=== PATIENT | female | born 1955 | race Caucasian/White ===

== ENCOUNTER 2020-04-07 09:41 | Outpatient (CLI) | payer MEDICARE, SELFPAY ==
--- NOTE | ~2020-04-07 | MR_ITS ---
MR breast BI wo con 04/07/2020 11:47 CDT INDICATION: Evaluate for breast implant rupture. History of breast reconstruction. TECHNIQUE: MRI of the breasts perform using standard protocol without intravenous contrast including axial T2 FSE ASSET, axial vibrant, sagittal T2 fast spin echo, sagittal T2 STIR with silicone suppres vikki, sagittal T2 STIR water suppression COMPARISON: Mammogram dated 05/27/2019 FINDINGS: There are bilateral subglandular implants. There is metallic artifact along the inferior ma rgin of the left breast implant. There are normal radial folds in both implants. No evidence for intr acapsular or extracapsular implant rupture. There are normal-appearing bilateral axillary lymph nodes . No suspicious masses are identified. IMPRESSION: 1: No evidence for breast implant rupture. Reviewed, dictated and finalized at location A.
== END 2020-04-07 09:42 | disposition home or self-care (01) ==
PROVIDERS: PCP Family Medicine
DX: Z98.82 Breast implant status (principal); N63.11 Unspecified lump in the right breast, upper outer quadrant
CPT/HCPCS: 77047

== ENCOUNTER 2020-11-20 08:44 | Outpatient (CLI) | payer MEDICARE, SELFPAY ==
--- NOTE | ~2020-11-20 | DEXA_ITS ---
Bone Density Report Name: Jennifer Cannon Age: 65 Sex: Female Ethnicity: White Date of : 1955 Indication: postmenopausal; height loss; prior fracture; cancer; Referring Provider: KAIA, CHUCK Nunez Study: Bone densitometry was performed. Exam Date: November 20, 2020 Accession number: [id number] Bone Density: Region BMD T-score Z-score Classification AP Spine (L1-L4) 0.740 -2.8 -0.8 Osteoporosis Femoral Neck (Left) 0.617 -2.1 -0.4 Osteopenia Total Hip (Left) 0.773 -1.4 0.0 Osteopenia Total Hip Bilateral Avg 0.769 -1.5 -0.1 Osteopenia Femoral Neck (Right) 0.598 -2.3 -0.6 Osteopenia Total Hip (Right) 0.765 -1.5 -0.1 Osteopenia World Health Organization criteria for BMD impression classify patients as: Normal (T-score at or above -1.0), Osteopenia (T-score between -1.0 and -2.5), or Osteoporosis (T-score at or below -2.5). 10-year Fracture Risk: FRAX not reported because: Some T-score for Spine Total or Hip Total or Femoral Neck at or below -2.5 Clinical Information Provided by Patient: Has had a low trauma fracture Has used the following medications: Vitamin D, Calcium Has the following medical conditions: Cancer Patient maximum height was 63 Menopause Age: 45 No regular weight bearing exercise Drinks caffeinated beverages Onset of menses at age 10 Number of children 0 Impression: The patient has established osteoporosis, based on the Total Spine T-score and the existence of a prior fracture. The patient has risk factors, including: previous fracture. Discussion: HIGH RISK OF FRACTURE. BONE DENSITY IS UNDESIRABLY LOW AT ONE OR MORE SKELETAL SITES, CONSISTENT WITH POSTMENOPAUSAL OSTEOPOROSIS. This patient's lowest T-score, in a patient who has previously fractured, meets the World Health Organization's (WHO) criteria for severe osteoporosis. In untreated patients, the risk of osteoporotic fracture increases approximately two-fold for each 1.0 SD decrease in T-score. Low bone density is not the only risk factor for fracture; also consider factors such as patient's age, frailty or poor health, risk of falling, risk of injury, previous osteoporotic fracture, family history of osteoporosis, cigarette smoking, low body weight, etc. Not everyone with low bone mineral density has osteoporosis; osteomalacia and other metabolic bone disorders should also be considered. Patients who have osteoporosis should be evaluated for specific diseases and conditions (secondary causes) that may cause or contribute to bone loss. The [place] Association [employer] Endocrinologists (AACE) and National Osteoporosis Foundation (NOF) recommend pharmacologic intervention for all postmenopausal women whose T-score is in this range. The patient should follow a healthful lifestyle (good nutrition with adequate calcium and vitamin D, and appropriate weigh
== END 2020-11-20 08:45 | disposition home or self-care (01) ==
LOC: ANHIMG 08:45
PROVIDERS: PCP Family Medicine; Visit Provider Family Medicine
DX: M81.0 Age-related osteoporosis without current pathological fracture (principal); M85.852 Other specified disorders of bone density and structure, left thigh; M85.851 Other specified disorders of bone density and structure, right thigh
CPT/HCPCS: 77080

== ENCOUNTER 2020-11-22 15:06 | Outpatient (CLI) | payer MEDICARE, SELFPAY ==
--- NOTE | ~2020-11-22 | US_ITS ---
EXAMINATION:US venous doppler LE LT INDICATION:Left leg pain TECHNIQUE: Multiple grayscale, color flow and Doppler images of the left lower extremity deep venous systems were obtained and reviewed. COMPARISON:No prior studies for comparison. FINDINGS: The common femoral, superficial femoral and popliteal veins demonstrate normal respiratory variation, augmentation and compressibility. Color flow is also seen within the posterior tibial, pe roneal, greater saphenous and profunda veins. There is a Castillo's cyst in the popliteal fossa measurin g 2.3 cm. IMPRESSION: 1: No lower extremity deep venous thrombosis. Reviewed, dictated and finalized at location A. 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
== END 2020-11-22 15:07 | disposition home or self-care (01) ==
PROVIDERS: PCP Family Medicine; Visit Provider Family Medicine
DX: M79.605 Pain in left leg (principal)
CPT/HCPCS: 93971

== ENCOUNTER → 2021-08-23 14:54 | Outpatient (CLI) | payer MEDICARE, SELFPAY ==
--- NOTE | ~2021-08-23 | MM_ITS ---
EXAMINATION: MM scrn mor implant BI w desean HISTORY: Screening mammogram TECHNIQUE: Craniocaudal and mediolateral oblique 3-D tomosynthesis images with implant displacement a nd synthetic 2-D images were generated. Craniocaudal and mediolateral oblique views of the breasts wi thout implant displacement were obtained using full field digital mammography. CAD analysis was submi tted and interpreted. COMPARISON: Comparison to multiple prior studies sequentially, with oldest reviewed study dated 11/2017. BREAST PARENCHYMAL COMPOSITION: There are scattered areas of fibroglandular density. FINDINGS: There is no evidence of suspicious mass, calcification, or architectural distortion to sugg est malignancy in either breast. There has been no suspicious interval change. IMPRESSION: 1. No mammographic evidence of malignancy. 2. Recommend routine screening mammography in one year. BI-RADS Category 1: Negative Reviewed, dictated and finalized at location A. 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
== END ==
PROVIDERS: PCP Family Medicine; Visit Provider Family Medicine
DX: Z12.31 Encounter for screening mammogram for malignant neoplasm of breast (principal)
CPT/HCPCS: 77063; 77067

== ENCOUNTER 2023-02-24 13:08 | Emergency (ER) | payer MEDICARE, SELFPAY ==
--- NOTE | ~2023-02-24 | XR_ITS ---
XR hand RT min 3V 02/24/2023 14:18 Indication: Fourth metacarpal and fifth digit pain Procedure: 3 views right hand Comparison: No prior studies for comparison. 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 Osteopenia. No fracture or traumatic malalignment. No focal soft tissue abnormality. No foreign bodies. Impression: 1: No acute fracture. Reviewed, dictated and finalized at location [] Impression: 1: No acute fracture.
[2023-02-24 13:11] VITALS: BP 144/81; PULSE 80; RESP 16; TEMP 36.3; O2SAT 100
[2023-02-24 13:13] VITALS: TEMP 37
--- NOTE | 2023-02-24 14:02 | ED.GENADULT ---
HPI - General Adult General Chief complaint: Extremity Injury, Upper Stated complaint: right hand injury Time Seen by Provider: 02/24/23 13:13 Source: patient Mode of arrival: ambulatory Limitations: no limitations History of Present Illness HPI narrative: This is a 67-year-old female with PMH of anxiety who presents to the ED with chief complaints of right hand pain beginning 2 days ago. Patient states she was out of town in [place] over the weekend and was moving lots of chairs and playing with her kids on the playground. She is unsure of any specific trauma or injury to the right hand. Reports pain in the fourth MCP area. Denies any bruising or swelling. Denies any skin changes. Denies any further site of pain. Related Data Allergies Allergy/AdvReac Type Severity Reaction Status Date / Time linezolid Allergy Mild INSOMNIA,LOOSE Verified 02/24/23 13:17 STOOLS,FREQUENCY Penicillins Allergy Unknown RASH Unverified 02/24/23 13:17 Review of Systems Review of Systems: CONSTITUTIONAL: Denies fever, chills, or sweats. EYES: Denies visual changes, redness, or discharge. ENT: Denies rhinorrhea, congestion, sore throat, or otalgia. CARDIOVASCULAR: Denies chest pain, palpitations, or edema. RESPIRATORY: Denies cough or dyspnea. GASTROINTESTINAL: Denies abdominal pain, nausea, vomiting, or diarrhea. GENITOURINARY: Denies dysuria or hematuria. SKIN: Denies rash or itching. Denies redness or bruising. MUSCULOSKELETAL: See HPI NEUROLOGIC: Denies headache, numbness, dizziness, or weakness. PSYCHIATRIC: Denies anxiety or depression. Exam Narrative: GENERAL: Well-appearing, well-nourished, and in no acute distress. HEAD: Normocephalic, atraumatic. EYES: PERRLA and EOMI. ENT: Nares clear, no rhinorrhea or epistaxis. Mucous membranes moist. Oropharynx without tonsillar hypertrophy exudate or other lesions. NECK: Supple. No adenopathy or masses. CHEST: No respiratory distress. Clear to auscultation. No wheezes rales or rhonchi HEART: Regular rate and rhythm. No murmur heard. Normal peripheral pulses. ABDOMEN: Soft, nontender, nondistended, normal active bowel sounds. MSK: Right hand: No swelling. No bruising. No skin changes. She has mild tenderness palpation of the fourth MCP dorsally. Neurovascular intact distally. Full range of motion throughout the hand. Left hand: Benign. Normal range of motion. No edema. SKIN: Warm, dry, no rash. NEURO: Alert and oriented x3. No focal deficits. PSYCH: Normal mood and affect. Course Vital Signs Vital signs: Vital Signs Temperature 97.4 F L 02/24/23 13:11 Pulse Rate 80 02/24/23 13:11 Respiratory Rate 16 02/24/23 13:11 Blood Pressure 144/81 H 02/24/23 13:11 Pulse Oximetry 100 02/24/23 13:11 Oxygen Delivery Room Air 02/24/23 13:11 Temperature 98.6 F 02/24/23 13:13 Pulse Rate 80 02/24/23 13:11 Respiratory Rate 16 02/24/23 13:11 Blood Pressure 144/81 H 02/24/23 13:11 Pulse Oximetry 100 02/24/23 13:11 Oxygen Delivery Room Air 02/24/23 13:11 Medical Decision Making MDM Narrative Medical decision making narrative: This is a 67-year-old female who presents to the ED with chief complaint of right hand pain x2 days. No injuries. Vitals are stable. Exam is completely benign. X-rays are negative. Symptoms are consistent with strain versus arthritis. She was given prescription for meloxicam. Stable for discharge. Return precautions given. Supportive measures at home discussed including using a wrist brace for comfort. She is understanding and agreeable with plan for discharge and follow-up with her PCP. Vital Signs Vital Signs: Vital Signs Temperature 97.4 F L 02/24/23 13:11 Pulse Rate 80 02/24/23 13:11 Respiratory Rate 16 02/24/23 13:11 Blood Pressure 144/81 H 02/24/23 13:11 Pulse Oximetry 100 02/24/23 13:11 Oxygen Delivery Room Air 02/24/23 13:11 Temperature 98.6 F 02/24/23 13:13 Pulse Rate 8
== END 2023-02-24 14:37 | disposition home or self-care (01) ==
PROVIDERS: Emergency Provider Physician Assistant; PCP Family Medicine
DX: M25.541 Pain in joints of right hand (principal); M19.041 Primary osteoarthritis, right hand; M11.231 Other chondrocalcinosis, right wrist; M85.841 Other specified disorders of bone density and structure, right hand
CPT/HCPCS: 73130; 99283

== ENCOUNTER 2025-03-14 11:15 | Outpatient (CLI) | payer MEDICARE, SELFPAY ==
--- NOTE | ~2025-03-14 | XR_ITS ---
Lumbosacral Spine: AP and lateral views Clinical History: Pain Findings: The normal lordotic curve is maintained. No fracture or subluxation. There is advanced dege nerative disc narrowing at L2-L3. There is moderate degenerative single L5-S1. There is moderate face t arthropathy at L4-L5 and L5-S1. There is mild facet arthropathy the upper lumbar spine. The sacroil iac joints are normally outlined. Impression: Moderate degenerative spondylosis overall, as detailed above. Reviewed, dictated and finalized at location M. Impression: Moderate degenerative spondylosis overall, as detailed above.
--- NOTE | ~2025-03-14 | XR_ITS ---
AP view of the pelvis and AP and lateral views of the bilateral hips Clinical history: Pain Findings: No acute fracture or dislocation is seen. Osseous alignment is anatomic. Bilateral hip and SI joint spaces are preserved. Soft tissues are unremarkable. Impression: No significant abnormality is seen. Reviewed, dictated and finalized at location . Impression: No significant abnormality is seen.
--- OUTSIDE RECORDS SUMMARY | 2025-03-14 11:48 | XMS_ITS | Referral Summary ---
Author Organization [facility] Care Team Providers Care Retirement Officer Name Role Phone Joaquim Pritchett MD Primary Care Provider [phone] Encounters Date Type Department Care Team Description 02/17/2025 11:00 AM CDT Office Visit [facility] [address] [place] [id number] Rosy Olson MD H/O cosmetic plastic surgery (Primary Dx); Follow-up exam from Last 3 Months Allergies Active Allergy Reactions Criticality Noted Date Comments Etodolac Other (See comments) Medium 02/17/2025 Linezolid Diarrhea,Nausea & Vomiting High 8 Penicillins Rash Medium 03/04/2013 Medications alendronate (FOSAMAX) 70 mg tablet Take 1 tablet (70 mg total) by mouth once a week Active amLODIPine (NORVASC) 5 mg tablet amlodipine 5 mg tablet 09/15/18 70 Active aspirin 81 mg enteric coated tablet Take 1 tablet (81 mg total) by mouth daily Active atorvastatin (LIPITOR) 20 mg tablet Take 1 tablet (20 mg total) by mouth every evening Active cetirizine (ZyrTEC) 10 mg tablet Take 1 tablet (10 mg total) by mouth daily 01/14/20 24 Active escitalopram (LEXAPRO) 10 mg tablet 1/2 tab po qday with food x 1 week then increase to 1 po qday with food Active etodolac (LODINE) 400 mg tablet Take 1 tablet twice a day by oral route. Active fexofenadine-p seudoephedrine (Shamika-D 12 Hour) 60-120 mg per 12 hr tablet Active Veozah tablet tablet Take 1 tablet (45 mg total) by mouth daily 02/11/20 25 Active ibandronate (BONIVA) 150 mg tablet TAKE 1 TABLET BY MOUTH ONCE MONTHLY Active clorazepate (TRANXENE) 7.5 mg tablet 2 07/17/20 18 025 Discontinued Active Problems Problem Noted Date Diagnosed Date Surgical follow-up care 11/26/2016 Mass of breast 02/24/2013 Social History Tobacco Use Types Packs/Day Years Used Date Smoking Tobacco: Former Comments Unknown Sex and Gender Information Value Date Recorded Sex Assigned at Not on file Legal Sex Female 1:14 PM 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 Gender Identity Not on file Sexual Orientation Not on file Last Filed Vital Signs Vital Sign Reading Time Taken Comments Blood Pressure - - Pulse - - Temperature 36.7 C (98.1 F) 03/09/2020 3:46 PM CDT Respiratory Rate - - Oxygen Saturation - - Inhaled Oxygen Concentration - - Weight 60.8 kg (133 lb 15.9 oz) 11/26/2016 2:12 PM CDT Height 157.5 cm (5' 2) 11/26/2016 2:12 PM CDT Body Mass Index 24.51 11/26/2016 2:12 PM CDT Plan of Treatment Not on file Procedures Procedure Name Priority Date/Time Associated Diagnosis Comments DIAGNOSTIC MAMMOGRAM BILATERAL W ADOLFO W IMPLANTS Schedule Routine, Read Routine (OP Routine) 08/06/2024 10:47 AM 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 Breast pain Personal history of breast cancer DEXA AXIAL SKELETON BONE DENSITY 1 OR MORE SITES Schedule Routine, Read Routine (OP Routine) 03/10/2023 1:25 PM CDT Screening for osteoporosis from Last 3 Months or Most Recently Relevant to Health Maintenance Results * Diagnostic Mammogram Bilateral W Adolfo W Implants (08/06/2024 10:47 AM 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) Anatomical Region Laterality Modality Breast Bilateral Mammography 08/06/2024 11:1 7 AM 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 Impressions 08/06/2024 11:17 AM 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 1. No suspicious finding on either mammogram or ultrasound at the patient's area of left breast pain (3 o'clock position). Clinical follow-up is recommended. Any further evaluation should be based on clinical grounds. 2. No mammographic evidence of malignancy in either breast. Bilateral silicone breast implants appear mammographically stable. Monthly breast self physical examination and screening mammography in one year are recommended. The patient was notified of these findings and recommendations at the time of the examination. OVERALL FINAL ASSESSMENT: BI-RADS Category 2: Benign. Electronically signed by: Fernando De Anda M.D. Narrative 08/06/2024 11:17 AM 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 EXAMINATION: BILATERAL DIGITAL DIAGNOSTIC MAMMOGRAM INCLUDING CAD AND BILATERAL DIGITAL BREAST TOMOSYNTHESIS; LEFT BREAST SONOGRAM HISTORY: 69-year-old female presents for evaluation of focal pain in the left breast and for annual right screening mammogram. History of left breast cancer status post breast conserving therapy in 1999. Bilateral silicone breast implants. COMPARISON: Mammograms dated 03/10/2023 and 08/23/2021. Outside breast MRI dated 04/07 2020. TECHNIQUE: Full field digital mammographic views of BOTH breast were performed, including computer aided detection (CAD) and BILATERAL digital breast tomosynthesis (DBT). Directed ultrasound evaluation of the LEFT breast was performed. BREAST PARENCHYMAL COMPOSITION: The breasts are heterogeneously dense, which may obscure small masses. MAMMOGRAM FINDINGS: Bilateral subglandular silicone breast implants are unchanged in appearance. The presence of implants limits the sensitivity of mammography. There are benign calcifications in both breasts. A radiopaque marker has been placed on the central outer left breast, denoting the area of pain. No suspicious finding is seen underlying the marker. There has been no suspicious interval change in either breast on mammogram. SONOGRAM FINDINGS: Targeted ultrasound of the left breast area of pain at 3:00 (1-8 cm nipple) demonstrates only normal-appearing breast tissue with no solid or cystic mass or other suspicious finding. The indwelling left breast implant appears grossly unremarkable on limited evaluation. us Joaquim Pritchett MD IMG MAMMO PROCEDURES Final Result * Dexa Axial Skeleton Bone Density 1 or 2 Site (03/10/2023 1:25 PM CDT) Anatomical Region Laterality Modality Body N/A Other 03/10/2023 9:04 PM CDT Narrative 03/10/2023 9:05 PM CDT EXAM DESCRIPTION: DEXA AXIAL SKELETON BONE DENSITY 1 OR MORE SITES REASON FOR STUDY: 67 y/o year old F with given history of: Bone density follow up Screening. 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 IMPRESSION: Osteoporosis. REFERENCE: Bone mineral density: Normal (T-score above or = -1.0) Low bone mass (T-score between -1.0 and -2.5) replaces the previously used term osteopenia Osteoporosis (T-score = or below -2.5) Medical evaluation for secondary causes of low bone mineral density may be appropriate. FRAX is a World Health Organization validated fracture risk assessment tool that calculates a person's 10 year probability of a major osteoporosis related fracture and hip fracture. According to the National Osteoporosis Foundation guidelines, postmenopausal women and men age 50 or older with low bone mass and a 10 year probability of a major osteoporosis related fracture = or greater than 20% or a 10 year probability of a hip fracture = or greater than 3% should be considered for treatment. For further information, including treatment recommendations, please refer to the 2019 ISCD Official Positions (http://www.iscd.org) and the NOF's Clinician's Guide to Prevention and Treatment of Osteoporosis (http://www.nof.org/professionals/clinical-guidelines) THIS IS AN ELECTRONICALLY VERIFIED FINAL REPORT 03/10/2023 9:05 PM - Electronically signed by Unruly Matias M.D. MF: [email or web address] Report ID: [id number] Reading Location: [id number] Procedure Note Unruly Matias MD - 03/10/2023 EXAM DESCRIPTION: DEXA AXIAL SKELETON BONE DENSITY 1 OR MORE SITES REASON FOR STUDY: 67 y/o year old F with given history of: Bonedensity follow up Screening. 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 IMPRESSION: Osteoporosis. REFERENCE: Bone mineral density: Normal (T-score above or = -1.0) Low bone mass (T-score between -1.0 and -2.5) replaces thepreviously used term osteopenia Osteoporosis (T-score = or below -2.5) Medical evaluation for secondary causes of low bone mineral density may be appropriate. FRAX is a World Health Organization validated fracture risk assessmenttool that calculates a person's 10 year probability of a major osteoporosisrelated fracture and hip fracture. According to the National OsteoporosisFoundation guidelines, postmenopausal women and men age 50 or older with low bonemass and a 10 year probability of a major osteoporosis related fracture = or greater than 20% or a 10 year probability of a hip fracture = or greaterthan 3% should be considered for treatment. For further information, including treatment recommendations, please referto the 2019 ISCD Official Positions (http://www.iscd.org) and the NOF's Clinician's Guide to Prevention and Treatment of Osteoporosis (http://www.nof.org/professionals/clinical-guidelines) THIS IS AN ELECTRONICALLY VERIFIED FINAL REPORT 03/10/2023 9:05 PM - Electronically signed by Unruly Matias M.D. MF: [email or web address] Report ID: [id number] Reading Location: [id number] Indu Whitaker MD IMG DXA PROCEDURES Final Result from Last 3 Months or Most Recently Relevant to Health Maintenance Insurance [id number] [place] [address] MEDICARE [facility] MEDICARE Care Teams Retirement Officer Relationship Specialty Start Date End Date Joaquim Pritchett MD [address] [place] [id number] PCP - General Family Medicine 05/05/24
--- OUTSIDE RECORDS SUMMARY | 2025-03-14 11:48 | XMS_ITS | Data Portability ---
Author Organization [facility], Main Office Address [address] [place] [address] Assessment No assessment recorded. Plan of Treatment Reminders Order Date Submit Date Provider Last Modified By Organization Details Last Modified Time Details Appointments None recorded. Lab urinalysis, dipstick 2022 023 [facility] [address], [place], [address], 3 11:29:41 Referral urogynecolo gist referral 2022 023 [email or web address] Rosendo White MD, [address] [facility] [address], [place], [address], 4 10:36:04 Procedures None recorded. Surgeries None recorded. Imaging None recorded. Medication Orders Sudafed 30 mg tablet 2023 024 [facility] #[id number], [address], [place], [address], 4 16:54:15 amoxicillin 875 mg-potassiu m clavulanate 125 mg tablet 2023 024 [facility] #[id number], [address], [place], [address], 4 16:54:13 prednisone 20 mg tablet 2023 024 [facility]/Pharmacy #[id number], [address], [place], [address], 4 16:54:12 Macrobid 100 mg capsule 2022 023 [facility]acy #[id number], [address], [place], [address], 3 11:21:51 Patient TargetsNo targets recorded. Patient InstructionsNo instructions recorded. Reason for Referral Urogynecologist Referral for Urinary incontinence Referring Physician: Devyn House, Family Medicine, Encounter Date: 08/15/2023 Results Created Date Observation Date Name Description Value Unit Range Abnormal Flag Note LastModifiedBy Organization Detail LastModifiedTime 08/15/2008/15/2023 urina lysis , dipst ick Leukocytes (reference range: negative nick/ l) Large Not Available [address], [place], [address], 08/15/2023 10:58:09 08/15/20 23 08/15/2023 urina lysis , dipst ick Nitrite (reference rage: negative mg/dl) negati ve Not Available [address], [place], [address], 08/15/2023 10:58:09 08/15/20 23 08/15/2023 urina lysis , dipst ick Urobilinogen (reference range: 0.2-1 mg/dl) 0.2 Not Available [address], [place], [address], 08/15/2023 10:58:09 08/15/20 23 08/15/2023 urina lysis , dipst ick Protein (reference range: negative mg/dl) Modera te Not Available [address], [place], [address], 08/15/2023 10:58:09 12/01/08/15/2023 urina lysis , dipst ick pH (reference range: 5-7) 5.5 Not Available [address], [place], [address], 08/15/2023 10:58:09 08/15/20 23 08/15/2023 urina lysis , dipst ick Blood (reference range: negative Akin/ l) Modera te Not Available [address], [place], [address], 08/15/2023 10:58:09 08/15/2008/15/2023 urina lysis , dipst ick Specific Treynor (reference range: 1.005-1.030) 1.025 Not Available [address], [place], [address], 08/15/2023 10:58:09 08/15/20 23 08/15/2023 urina lysis , dipst ick Ketone (reference range: negative mg/dl) Negati ve Not Available [address], [place], [address], 08/15/2023 10:58:09 08/15/20 23 08/15/2023 urina lysis , dipst ick Bilirubin (reference range: negative mg/dl) Negati ve Not Available [address], [place], [address], 08/15/2023 10:58:09 08/15/20 23 08/15/2023 urina lysis , dipst ick Glucose (reference range: negative mg/dl) Negati ve Not Available [address], [place], [address], 08/15/2023 10:58:09 08/15/20 23 08/15/2023 urina lysis , dipst ick Appearance Clear Not Available [facility] [address], [place], [address], 08/15/2023 10:58:09 08/15/20 23 08/15/2023 urina lysis , dipst ick Color Yellow Not Available [facility] [address], [place], [address], 08/15/2023 10:58:09 09/02/20 23 09/02/2023 URINA LYSIS COMPL ETE/I RIS W/RFX color YELLOW Not Available [facility] (Lab) [address] [place], [address], 09/02/2023 21:03:30 09/02/20 23 09/02/2023 URINA LYSIS COMPL ETE/I RIS W/RFX appear TURBID abnormal Not Available [facility] (Lab) [address] [place], [address], 09/02/2023 21:03:30 09/02/20 23 09/02/2023 URINA LYSIS COMPL ETE/I RIS W/RFX specific gravity 1.024 1.001- 1.030 Not Available [facility] (Lab) [address] [place], [address], 09/02/2023 21:03:30 09/02/20 23 09/02/2023 URINA LYSIS COMPL ETE/I RIS W/RFX pH 5.5 pH_un its 5.0-9. 0 Not Available [facility] (Lab) [address] [place], [address], 09/02/2023 21:03:30 09/02/20 23 09/02/2023 URINA LYSIS COMPL ETE/I RIS W/RFX leukocytes NEGATI VE nick/u L negati ve- Not Available [facility] (Lab) [address] [place], [address], 09/02/2023 21:03:30 09/02/20 23 09/02/2023 URINA LYSIS COMPL ETE/I RIS W/RFX nitrite NEGATI VE negati ve- Not Available [facility] (Lab) [address] [place], [address], 09/02/2023 21:03:30 09/02/20 23 09/02/2023 URINA LYSIS COMPL ETE/I RIS W/RFX protein 20 mg/dL negati ve- abnormal Not Available [facility] [address] [facility] [place], [address], 09/02/2023 21:03:30 09/02/20 23 09/02/2023 URINA LYSIS COMPL ETE/I RIS W/RFX glucose NORMAL mg/dL normal - Not Available [facility] (Lab) [address] [place], [address], 09/02/2023 21:03:30 09/02/20 23 09/02/2023 URINA LYSIS COMPL ETE/I RIS W/RFX ketones NEGATI VE mg/dL negati ve- Not Available [facility] (Lab) [address] [place], [address], 09/02/2023 21:03:30 09/02/20 23 09/02/2023 URINA LYSIS COMPL ETE/I RIS W/RFX urobilinogen NORMAL mg/dL normal - Not Available [facility] (Lab) [address] [place], [address], 09/02/2023 21:03:30 09/02/20 23 09/02/2023 URINA LYSIS COMPL ETE/I RIS W/RFX bilirubin NEGATI VE mg/dL negati ve- Not Available [facility] (Lab) [address] [place], [address], 09/02/2023 21:03:30 09/02/20 23 09/02/2023 URINA LYSIS COMPL ETE/I RIS W/RFX blood NEGATI VE mg/dL negati ve- Not Available [facility] (Lab) [address] [place], [address], 09/02/2023 21:03:30 09/02/20 23 09/02/2023 URINA LYSIS COMPL ETE/I RIS W/RFX white blood cells 0-8 /i??h pfi?? 0-8 Not Available [facility] (Lab) [address] [place], [address], 09/02/2023 21:03:30 09/02/20 23 09/02/2023 URINA LYSIS COMPL ETE/I RIS W/RFX red blood cells 5-10 /i??h pfi?? 0-4 abnormal Not Available [facility] ([facility] [address] [facility] [place], [address], 09/02/2023 21:03:30 09/02/20 23 09/02/2023 URINA LYSIS COMPL ETE/I RIS W/RFX bacteria NONE Not Available [facility] (Lab) [address] [place], [address], 09/02/2023 21:03:30 09/02/20 23 09/02/2023 URINA LYSIS COMPL ETE/I RIS W/RFX mucous FEW /i??l pfi?? abnormal Not Available [facility] (Lab) [address] [place], [address], 09/02/2023 21:03:30 09/02/20 23 09/02/2023 URINA LYSIS COMPL ETE/I RIS W/RFX squamous epithelial PACKED FIELD /i??l pfi?? abnormal Not Available [facility] (Lab) [address] [place], [address], 09/02/2023 21:03:30 09/02/20 23 09/02/2023 URINA LYSIS COMPL ETE/I RIS W/RFX hyaline cast MODERA TE /i??l pfi?? none seen- abnormal Not Available [facility] (Lab) [address] [place], [address], 09/02/2023 21:03:30 Result Notes None recorded. Problems Name Problem SNOMED Code Status Onset Date Resolution Date Notes Provider Name and Address Organization Details Recorded Time Neoplasm of breast 359480248 Active 1999 Not Available [facility] 3 00:54:49 Indigestion 694460566 Active Not Available [facility] 3 00:54:49 Closed fracture of distal end of radius 39658137 Active Not Available [facility] 3 00:54:49 Plantar fasciitis 459040824 Active Not Available [facility] 3 00:54:50 Abdominal pain 37026012 Active Not Available [facility] 3 00:54:50 Ankle pain 913222420 Active 2020 Not Available [facility] 3 00:54:50 Chest pain 24741242 Active Not Available [facility] 3 00:54:50 Bronchitis 76570359 Active Not Available [facility] 3 00:54:50 Foreign body in skin of foot 887141789 Active 2021 Not Available [facility] 3 00:54:50 Foot pain 64006498 Active Not Available [facility] 3 00:54:50 Anxiety 30346254 Active Not Available [facility] 3 00:54:50 Cough 27241924 Active Not Available [facility] 3 00:54:50 Peroneal tendinitis 62843043 Active 2021 Not Available [facility] 3 00:54:50 Osteoporosis 78439449 Active 2017 Not Available [facility] 3 00:54:50 Fracture of forearm 62936084 Active Not Available [facility] 3 00:54:50 Rhinitis 96921329 Active Not Available [facility] 3 00:54:50 Effects of high altitude 84172615 Active 2022 Indu Whitaker MD [address], [address], [place], [address] , [facility] 3 11:55:55 Eczema 94577500 Active 2022 Indu Whitaker MD [address], [address], [place], [address] , [facility] 3 11:59:13 Urinary incontinence 139059041 Active 2022 Indu Whitaker MD [address], [address], [place], [address] , [facility] 3 12:01:52 Reduced libido 2053480 Active 2022 DUSTIN De La VegaP-C [address], [address], [place], [address] , [facility] 3 10:50:53 Night sweats 60920821 Active 2022 ZAC De La Vega-C [address], [address], [place], [address] , [facility] 3 10:52:34 Cellulitis 340736004 Active 2022 Indu Whitaker MD [address], [address], [place], [address] , [facility] 3 18:08:08 Acute urinary tract infection 433095430 Active 2022 THIAGO De La Vega [address], [address], [place], [address] , [facility] 3 10:58:00 Urinary symptoms 984305855 Active 2023 Fransisca Saucedo RN null, [place] [facility] 4 12:22:41 Congestion of nasal sinus 55252947 Active 2023 DUSTIN De La VegaP-C [address], [address], [place], [address] , [facility] [employer] [facility] [address] 4 14:31:20 Acute sinusitis 49711978 Active 2023 Devyn House ZAC-C [address], [place], [address] , [employer] [facility] [employer] 4 16:42:20 Insomnia 145924945 Active 2023 Devyn House ZAC-C [address], [facility] [address], [place], [address] , [employer] [address] 4 11:29:35 Problem Notes None recorded. Procedures Surgical History Date Name Laterality Status Provider Name and Address Organization Details Recorded Time 05/10/20 17 Breast Surgery completed Not Available [facility] 11/13 00:47:34 09/02/20 16 Breast Surgery completed Not Available [facility] 11/13 00:47:34 08/15/20 16 Breast Biopsy completed Not Available [facility] 2022 00:47:34 09/15/19 16 Breast Surgery completed Not Available [facility] 11/13 00:47:34 05/31/20 15 Date of Last Colonoscopy completed Not Available [facility] 11/13/2022 00:47:31 05/31/20 15 colonoscopy completed Not Available [facility] 11/14/19 23 00:47:34 09/15/19 00 other completed Not Available [facility] 3 00:47:34 [employer] Surgery completed Not Available [facility] 11/13/2022 00:47:34 other completed Not Available [facility] 09/2022 00:47:34 Shoulder completed Not Available [facility] 00:47:34 Imaging Results None recorded. Procedure Notes None recorded. Medical Equipment None Reported. Allergies Allergen ID Allergen Name Allergen Category Reaction Reaction Severity Criticality Documentation Date Start Date Code Code System Note Provider Name and Address Organization Details Recorded Time 1213 Product containin g penicilli n (product) medicatio n rash Not available Not available 11/13/2022 95307 8001 SNOMED Not Available [facility] 3 01:01:20 1214 linezolid medicatio n diarrhea severe Not available 11/13/2022 04180 6 RxNorm Not Available [facility] 3 01:01:20 1215 etodolac medicatio n other moderate Not available 11/13/2022 96890 RxNorm Not Available [facility] 3 01:01:20 Medications Name Sig Start Date Stop Date Status Note LastModified by Organization Details LastModified Time cyclobenzap rine 10 mg tablet 05/28 completed Not Available Not Available Not Available prednisone 10 mg tablet 30mg x 2 days, 20mg x 2 days, 10mg x 2 days active Not Available Not Available No t Available venlafaxine ER 75 mg capsule,ext ended release 24 hr active Not Available Not Available Not Available doxycycline hyclate 100 mg capsule TAKE 1 CAPSULE BY MOUTH TWICE A DAY FOR 7 DAYS 08/14 completed Not Available Not Available Not Available atorvastati n 20 mg tablet TAKE 1 TABLET BY MOUTH EVERY DAY IN THE EVENING active Not Available Not Available No t Available erythromyci n 500 mg tablet Take 1 tablet twice a day by oral route for 7 days. active Not Available Not Available No t Available clindamycin HCl 300 mg capsule Take 1 capsule twice a day by oral route for 6 days. active Not Available Not Available No t Available trazodone 50 mg tablet TAKE 1 TABLET BY MOUTH EVERY DAY active Not Available Not Available No t Available cetirizine 10 mg tablet TAKE 1 TABLET BY MOUTH EVERY DAY 2023 active Not Available Not Available Not Avai lable azithromyci n 250 mg tablet TAKE 2 TABLETS BY MOUTH TODAY, THEN TAKE 1 TABLET DAILY FOR 4 DAYS DIRECTED active Not Available Not Available No t Available acetazolami de 125 mg tablet Take 1 tablet twice a day by oral route for 10 days. 08/14 completed Not Available Not Available Not Available benzonatate 200 mg capsule TAKE 1 CAPSULE BY MOUTH THREE TIMES A DAY NEEDED FOR COUGH 04/04 completed Not Available Not Available Not Available valacyclovi r 1 gram tablet Take 1 tablet every 12 hours by oral route for 3 days. active Not Available Not Available No t Available cephalexin 250 mg capsule 05/28 completed Not Available Not Available Not Available hydrocodone 5 mg-acetamin ophen 325 mg tablet 01/26 completed Not Available Not Available Not Available meloxicam 15 mg tablet TAKE 1 TABLET BY MOUTH DAILY active Not Available Not Available No t Available prednisone 20 mg tablet TAKE 2 TABLETS BY MOUTH EVERY DAY FOR 5 DAYS active Not Available Not Available No t Available alendronate 70 mg tablet TAKE 1 TABLET BY MOUTH EVERY WEEK active Not Available Not Available No t Available hydroxyzine pamoate 50 mg capsule active Not Available Not Available N ot Available ciprofloxac in 250 mg tablet Take 1 tablet twice a day by oral route for 7 days. active Not Available Not Available No t Available amlodipine 5 mg tablet TAKE 1 TABLET BY MOUTH EVERY DAY active Not Available Not Available No t Available ciprofloxac in 500 mg tablet Take 1 tablet twice a day by oral route for 7 days. 01/26 completed Not Available Not Available Not Available sulfamethox azole 800 mg-trimetho prim 160 mg tablet TAKE 1 TABLET BY MOUTH EVERY 12 HOURS FOR 10 DAYS 06/21 completed Not Available Not Available Not Available aspirin 81 mg tablet,ludmila yed release TAKE 1 TABLET BY MOUTH EVERY DAY active Not Available Not Available No t Available tramadol 50 mg tablet 01/26 completed Not Available Not Available Not Available triamcinolo ne acetonide 0.1 % topical cream APPLY A THIN LAYER TO THE AFFECTED AREA(S) TWICE DAILY active Not Available Not Available No t Available Promethazin e VC-Codeine 6.25 mg-5 mg-10 mg/5 mL oral syrup active Not Available Not Available Not Available oxycodone-a cetaminophe n 5 mg-325 mg tablet 05/28 completed Not Available Not Available Not Available Tessalon Perles 100 mg capsule Take 1 capsule 3 times a day by oral route. active Not Available Not Available No t Available linezolid 600 mg tablet TAKE ONE PILL TWICE A DAY 11/12 completed Not Available Not Available Not Available econazole nitrate 1 % topical cream APPLY TWICE DAILY TO LEFT LOWER LEG UNTIL CLEAR active Not Available Not Available No t Available cephalexin 500 mg capsule 05/28 completed Not Available Not Available Not Available Shamika-D 12 Hour 60 mg-120 mg tablet,exte nded release active Not Available Not Available Not Available Guaifenesin AC 10 mg-100 mg/5 mL oral liquid Take 10 mL 3 times a day by oral route. active Not Available Not Available No t Available sertraline 25 mg tablet TAKE 1 TABLET BY MOUTH EVERY DAY active Not Available Not Available No t Available Banophen 25 mg capsule TAKE 1 CAPSULE BY MOUTH EVERY 6 HOURS NEEDED FOR ALLERGY CONTROL. active Not Available Not Available No t Available etodolac 400 mg tablet Take 1 tablet twice a day by oral route. active Not Available Not Available No t Available montelukast 10 mg tablet Take 1 tablet every day by oral route. active Not Available Not Available No t Available methylpredn isolone 4 mg tablets in a dose pack TAKE 6 TABLETS ON DAY 1 DIRECTED ON PACKAGE AND DECREASE BY 1 TAB EACH DAY FOR A TOTAL OF 6 DAYS 06/21 completed Not Available Not Available Not Available Nasal Decongestan t (pseudoephe drine) 30 mg tablet TAKE 2 TABLETS EVERY 4-6 HOURS BY ORAL ROUTE NEEDED. active Not Available Not Available No t Available fluocinonid e 0.05 % topical cream APPLY TO AFFECTED AREA ON LEG TWICE A DAY FOR NO MORE THAN 3 WEEKS IN A ROW active Not Available Not Available No t Available fluticasone propionate 50 mcg/actuati on nasal spray,suspe nsion INSTILL 2 SPRAYS INTO THE NOSTRILS TWICE DAILY active Not Available Not Available No t Available sertraline 50 mg tablet TAKE 1 TABLET BY MOUTH EVERY DAY active Not Available Not Available No t Available doxycycline hyclate 100 mg tablet TAKE 1 TABLET BY MOUTH TWICE A DAY FOR 7 DAYS active Not Available Not Available No t Available clorazepate dipotassium 7.5 mg tablet TAKE 1 TABLET BY MOUTH TWICE A DAY active Not Available Not Available No t Available amoxicillin 875 mg-potassiu m clavulanate 125 mg tablet TAKE 1 TABLET BY MOUTH EVERY 12 HOURS FOR 7 DAYS active Not Available Not Available No t Available escitalopra m 10 mg tablet 1/2 tab po qday with food x 1 week then increase to 1 po qday with food active Not Available Not Available No t Available cyclobenzap rine 5 mg tablet TAKE 1 TABLET BY MOUTH AT BEDTIME NEEDED 04/04 completed Not Available Not Available Not Available nitrofurant oin monohydrate /macrocryst als 100 mg capsule TAKE 1 CAPSULE BY MOUTH TWICE A DAY DIRECTED FOR 7 DAYS active Not Available Not Available No t Available ibandronate 150 mg tablet TAKE 1 TABLET BY MOUTH EVERY MONTH active Not Available Not Available No t Available atorvastati n 07/10 completed Not Available Not Available Not Available ibuprofen take 600 mg prn 04/05 completed Not Available Not Available Not Available Actonel 150 mg tablet active Not Available Not Available No t Available Shamika Allergy 180 mg tablet Take 1 tablet every day by oral route for 6 days. 09/23 completed Not Available Not Available Not Available Osphena 60 mg tablet active Not Available Not Available No t Available Xiidra 5 % eye drops in a dropperette 07/24 completed Not Available Not Available Not Available BinaxNOW COVID-19 Ag Self Test kit USE DIRECTED 08/14 completed Not Available Not Available Not Available Vitals Date Recorded Body height Provider Name an d Address Organization Details Last Updated DateTime 09/19/2023 157.48 cm Fransisca Saucedo RN [facility] [employer] 09/19/2023 12:33:41 Date Recorded Body height Body mass index (BMI) Body weight Body temperature Oxygen saturation Oxygen saturation in Arterial blood by Pulse oximetry Heart rate Systolic blood pressure Diastolic blood pressure Provider Name and Address Organization Details Last Updated DateTime 4 157.48 cm 26 kg/m2 83774.1 2 g 96.8 [degF] 98 % 98 % 70 /min 144 mm[Hg] 76 mm[Hg] Yvette Alfredo RN [facility] 4 16:26:57 Date Recorded Body height Body mass index (BMI) Body weight Body temperature Heart rate Oxygen saturation Oxygen saturation in Arterial blood by Pulse oximetry Systolic blood pressure Diastolic blood pressure Provider Name and Address Organization Details Last Updated DateTime 4 157.48 cm 25.8 kg/m2 56573.5 2 g 97.1 [degF] 71 /min 97 % 97 % 134 mm[Hg] 78 mm[Hg] Perla Lawler RN [facility] 4 10:54:50 Date Recorded Body height Body mass index (BMI) Body weight Body temperature Heart rate Oxygen saturation Oxygen saturation in Arterial blood by Pulse oximetry Systolic blood pressure Diastolic blood pressure Provider Name and Address Organization Details Last Updated DateTime 3 157.48 cm 25.6 kg/m2 19445.9 3 g 98 [degF] 80 /min 99 % 99 % 124 mm[Hg] 78 mm[Hg] Lula Landa LPN [place] [employer] 10:56:07 Date Recorded Body height Provider Name an d Address Organization Details Last Updated DateTime 09/02/2023 157.48 cm Cindy Pickett CMA [employer] [facility] [employer] 09/02/2023 12:25:52 Social History Question Answer Notes LastModified by Organization Details LastModified Time Tobacco Smoking Status Former Smoker quiet Not Available [employer] 11/13/2022 00:46:40 Do You Have An Advance Directive? Yes [id number] Information not available 11/13/2022 Do You Wear A Helmet When Biking? Yes [email or web address].[id number] [id number] Information not available 11/13/2022 Are You Blind Or Do You Have Difficulty Seeing? Yes Glasses [email or web address] [id number] Information not available 11/13/2022 What Is Your Level Of Caffeine Consumption? Moderate 2 Cups A Day [email or web address].[id number] [id number] Information not available 11/13/2022 How Much Tobacco Do You Chew? None [email or web address].[id number] [id number] Information not available 11/13/2022 What Is Your Code Status? Other CPR, No Ventilator [email or web address] [id number] Information not available 11/13/2022 In The 14 Days Before Symptom Onset, Have You Had Close Contact With A Laboratory-conf irmed COVID-19 While That Case Was Ill? No [email or web address] [id number] Information not available 11/13/2022 In The 14 Days Before Symptom Onset, Have You Had Close Contact With A Person Who Is Under Investigation For COVID-19 While That Person Was Ill? No [email or web address].[id number] [id number] Information not available 11/13/2022 Are You Deaf Or Do You Have Serious Difficulty Hearing? No [email or web address].[id number] [id number] Information not available 11/13/2022 What Type Of Diet Are You Following? REGULAR [email or web address].0301 [id number] Information not available 11/13/2022 Which Illicit Or Recreational Drugs Have You Used? None [email or web address].0301 [id number] Information not available 11/13/2022 Have There Been Any Changes To Your Family Or Social Situation? No MIGRATION.0301 [id number] Information not available 11/13/2022 Are There Any Guns Present In Your Home? No MIGRATION.0301 [id number] Information not available 11/13/2022 Do You Use Insect Repellent Routinely? Yes [email or web address].[id number] [id number] Information not available 11/13/2022 Where Do You Live? [place] MIGRATION.0301 [id number] Information not available 11/13/2022 Do You Have A Medical Power Of Automatic Fabric Cutter? Yes [email or web address].0301 [id number] Information not available 11/13/2022 What Was The Date Of Your Most Recent Tobacco Screening? 07/10/2022 [email or web address].0301 [id number] Information not available 11/13/2022 Do You Have Any Pets? No MIGRATION.0301 [id number] Information not available 11/13/2022 Do You Use Your Seat Belt Or Car Seat Routinely? Yes [email or web address].0301 [id number] Information not available 11/13/2022 Do You Have Smoke And Carbon Monoxide Detectors In Your Home? Yes [email or web address].0301 [id number] Information not available 11/13/2022 At What Age Did You Start Smoking Tobacco? 18 MIGRATION.0301 [id number] Information not available 11/13/2022 Are You Passively Exposed To Smoke? No MIGRATION.0301 [id number] Information not available 11/13/2022 Are There Any Smokers In Your House? No MIGRATION.0301 [id number] Information not available 11/13/2022 How Much Tobacco Do You Smoke? No [email or web address].0301 [id number] Information not available 11/13/2022 Do You Use Sunscreen Routinely? Yes [id number] [id number] Information not available 11/13/2022 How Many Years Have You Smoked Tobacco? 30 MIGRATION.0301 [id number] Information not available 11/13/2022 Have You Recently Traveled Abroad? No MIGRATION.0301 [id number] Information not available 11/13/2022 Do You Have Difficulty Walking Or Climbing Stairs? No MIGRATION.0301 [id number] Information not available 11/13/2022 Do You Have Any Dietary Restrictions? No MIGRATION.0301 [id number] Information not available 11/13/2022 Sex: Unknown Functional Status Question Answer Note LastModified by Organizat ion Details LastModified Time What is your level of alcohol consumption? Occasional MIGRATION.[id number] 8067 Information not available 11/13/2022 Do you or have you ever used smokeless tobacco? Never used smokeless tobacco MIGRATION.619841 5216 Information not available 11/13/2022 Do you have transportation difficulties? No MIGRATION.019052 4068 Information not available 11/13/2022 Are you able to walk? YESWOREST MIGRATION.076352 8395 Information not available 11/13/2022 Do you have difficulty doing errands alone? No MIGRATION.720687 9483 Information not available 11/13/2022 Are you able to care for yourself? Yes MIGRATION.281794 7319 Information not available 11/13/2022 What is your occupation? retired MIGRATION.800161 4189 Information not available 11/13/2022 Do you have difficulty dressing or bathing? No MIGRATION.048524 4750 Information not available 11/13/2022 Do you or have you ever used e-cigarettes or vape? Never used electronic cigarettes MIGRATION.921971 8084 Information not available 11/13/2022 What is your exercise level? None MIGRATION.841144 5109 Information not available 11/13/2022 Mental Status Question Answer Note LastModified by Organizat ion Details LastModified Time Do you have difficulty concentrating, remembering or making decisions? No MIGRATION.[id number] 6 Information not available 11/13/2022 Family History Relationship Description Onset Age of this Age Resolved Age Notes LastModified by Organization Details LastModified Time Father Heart disease MIGRATION.719 [id number] Not available 11/13/2022 00:47:38 Mother Heart disease MIGRATION.488 [id number] Not available 11/13/2022 00:47:38 Mother Alzheimer's disease MIGRATION.635 [id number] Not available 11/13/2022 00:47:38 Mother Arthritis MIGRATION.040 [id number] Not available 11/13/2022 00:47:38 Brother Malignant tumor of pharynx MIGRATION.326 [id number] Not available 11/13/2022 00:47:38 Brother Heart disease MIGRATION.048 [id number] Not available 11/13/2022 00:47:38 Paternal Aunt Malignant tumor of pharynx MIGRATION.282 [id number] Not available 11/13/2022 00:47:38 Unspecified Relation Malignant tumor of pharynx MIGRATION.058 [id number] Not available 11/13/2022 00:47:39 Sister Heart disease MIGRATION.246 [id number] Not available 11/13/2022 00:47:39 Sister Heart valve disorder MIGRATION.168 [id number] Not available 11/13/2022 00:47:39 Sister Atrial fibrillation MIGRATION.516 [id number] Not available 11/13/2022 00:47:39 Sister Helicobacter -associated pyloric ulcer MIGRATION.047 [id number] Not available 11/13/2022 00:47:39 Medical History Condition Response CANCER: SPECIFY Y OSTEOPOROSIS Y Gynecological History Statement/Question Response Date of Last Mammogram Date of Last Colonoscopy 05/31/2015 Most Recent Bone Density Menses Monthly N Current Control Method Menopause Breast Problems no Discharge no Obstetrics History GPAL:G 0 P 0 0 0 0 Immunizations Vaccine Type Date Status Note Provider Nam e and Address Organization Details Recorded Time Hep A, adult 3 completed MADELYN Stout, [employer] ([employer]) 01/01/2023 17:16:05 pneumococcal polysaccharide PPV23 8 completed Not Available [facility] 11/13/2022 01:01:10 Influenza, high-dose, trivalent, PF 4 completed Not Available [facility] 11/13/2022 01:01:10 Influenza, high-dose, trivalent, PF 9 completed MADELYN Stout, [employer] ([employer]) 04/04/2023 11:34:40 Influenza, split virus, quadrivalent, PF 5 completed Not Available [facility] 11/13/2022 01:01:10 Past Encounters Encounter ID Performer Location Encounter Start Date Encounter Closed Date Diagnosis/Indication Diagnosis SNOMED-CT Code Diagnosis ICD10 Code Diagnosis Note [id number] Indu Whitaker MD [facility] Primary Care [place] [address] [place] [address] 11/15/2020 00:00:00 11/15/2020 15:46:03 [id number] Indu Whitaker MD [facility] [place] [address] [place] [address] 11/22/2020 00:00:00 12/06/2020 12:39:32 [id number] 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 [facility] [address] [place] [address] 03/30/2021 00:00:00 03/30/2021 17:05:04 [id number] Claude Ríos DPM [facility] [place] [address] [facility] [address] [place] [address] 04/05/2021 00:00:00 04/05/2021 15:08:08 [id number] [facility] [place] [address] [facility] [address] [place] [address] 04/26/2021 00:00:00 04/27/2021 10:55:39 [id number] [facility] [place] [address] [facility] [address] [place] [address] 05/17/2021 00:00:00 05/17/2021 16:47:20 [id number] Indu Whitaker MD [facility] Primary Care [address] [place] [address] 06/06/2021 00:00:00 06/12/2021 09:10:31 [id number] Indu Whitaker MD [facility] Primary Care [address] [place] [address] 08/21/2021 00:00:00 09/12/2021 17:03:38 [id number] SCARLET Wayne [facility] Primary Care [address] [place] [address] 05/27/2022 00:00:00 05/27/2022 16:43:40 [id number] [facility] _ATHENA_M IGRATION_ DEFAULT_1 _1 , 06/21/2022 00:00:00 06/24/2022 10:26:42 [id number] Indu Whitaker MD [facility] Primary Care [facility] [address] [facility] [address] [place] [address] 07/10/2022 00:00:00 07/10/2022 16:03:23 [id number] Indu Whitaker MD [facility] Primary Care [facility] [address] [facility] [address] [place] [address] 01/01/2023 16:03:46 01/01/2023 17:15:01 [id number] Indu Whitaker MD [facility] [address] [facility] [address] [place] [address] 04/04/2023 11:22:16 04/04/2023 12:06:57 Effects of high altitude 25783510 T70.20XA Eczema 34237451 L30.9 ok to use triamcinol one Urinary incontinence 165 856907 R32 denies stress or urge incontinen ce symptoms, has been going on for about 2 monthsurol ogy referral if UA is normal [id number] Indu Whitaker MD [facility] Primary Care [facility] [address] [facility] [address] [place] [address] 07/18/2023 10:11:07 07/18/2023 11:00:43 Osteoporosis 80337125 M81.0 -was instructed to stay off of alendronat e for 6 weeks, has now been 5 weeks-she is still noting salty taste to mouth, itchy/burn ing rash to anterior neck (believes d/t alendronat e)-has tried boniva in the past-doesn 't recall ASE-will reorder boniva-Pt to notify office of any ASE-f/u in 3 months Anxiety 07070525 F41.9 -notes long hx of anxiety/pa diallo attacks-wa s taking clorazepat e 15mg daily, med has now been discontinu ed-has tried ativan, xanax (shakiness ), and paxil, none worked-dis cussed taking taking 7.5mg daily of clorazepat e while transition ing on new meds-will trial sertraline -f/u in 1 month Postmenopausal state [id number] Z78.0 -Pt notes dealing with symptoms for many years-note s night sweats, flushing-h x of breast cx, unable to take estrogen-a lready adding sertraline , may add duloxetine in the future if no improvemen t [id number] Indu Whitaker MD [facility] Primary Care [facility] [address] [facility] [address] [place] [address] 08/15/2023 10:41:13 08/15/2023 11:29:40 Anxiety 67263282 F41.9 -still taking the clorazepat e 7.5mg daily, sertraline daily-foun d herself getting irritated at times but has leveled out-discus sed taking clorazepat e 7.5mg 1/2 tab daily until she runs out-she will continue taking the sertraline , declines increase at this time Acute urin bettie tract infection [id number] N39.0 -urine dip positive-w ill order macrobid Urinary incontinence 165 795537 R32 -has been a recurrent issue for this patient-pt is requesting referral to OB, given [id number] Indu Whitaker MD [facility] Primary Care [facility] [address] [facility] [address] [place] [address] 09/02/2023 11:51:55 09/02/2023 12:27:28 [id number] THIAGO De La Vega [facility] Primary Care [address] [place] [address] 09/19/2023 12:18:08 09/19/2023 12:34:13 [id number] THIAGO De La Vega [facility] Primary Care [address] [place] [address] 10/02/2023 16:16:10 10/14/2023 15:44:33 Acute sinusitis 22355317 J01.90 -dealing with this issue for the last month-has been treated with 2 courses of antibiotic s-symptoms include headache, sinus pressure, yellow drainage, chills-she did not get the order for sudafed, reordered- will trial generic augmentin [id number] THIAGO De La Vega [facility] Primary Care [place] [address] [facility] [address] [place] [address] 10/16/2023 10:46:17 10/16/2023 11:12:36 Acute sinusitis 32776059 J01.90 -pt notes improvemen t of symptoms-s he has not continued to take the cetirizine /flonase, encouraged -she used the generic sudafed with some relief Anxiety 93049889 F41.9 -still taking 1/2 of the 7.5mg clorazepat e until it runs out-discus sed increasing the sertraline to 50mg and stopping the clorazepat e-she is wanting to try to stop taking the clorazepat e now and will transition to only taking the sertraline 25mg-she will update this office if she wants to increase to 50mg Health Concerns Section Related Observation LastModified by Organization Detai ls LastModified Time None Recorded Concern Status LastModified by Organization Details LastModified Time None Recorded Advance Directives Directive Y: Payers Insurance Date Sequence Insurance Name Policy Number Policy Grewal Covered Member ID Grewal Member ID Guarantor Name 10/02/2023 1 [employer] (MEDICARE REPLACEMENT /ADVANTAGE - PPO) Jennifer Cannon [id number] Jennifer Cannon 10/02/2023 1 [employer] [place] ON [place] AFTER 2020 (MEDICARE REPLACEMENT /ADVANTAGE - HMO) Jennifer Cannon [id number] Jennifer Cannon 10/30/2023 1 [employer] (MEDICARE REPLACEMENT /ADVANTAGE - PPO) [id number] Jennifer Cannon [id number] Jennifer Cannon 11/13/2023 1 [employer] (MEDICARE REPLACEMENT /ADVANTAGE - PPO) [id number] Jennifer Cannon [id number] Jennifer Cannon Notes Date Note Type Note Provider Name and Address Organization Details Recorded Time 08/15/2023 text/html pt is here for 1 month f/u THIAGO De La Vega [address] [facility], [facility] [address], [place], [address], [facility] [employer] [facility] 08/15/2023 11:22:12 10/02/2023 text/html Pt is here for THIAGO [place] [address] [address], [place], [address], [facility] [employer] [facility] 10/02/2023 16:55:00 10/16/2023 text/html Pt is here for med f/u THIAGO De La Vega [address] [address], [place], [address], [facility] [employer] [facility] 10/16/2023 11:20:27 OBGyn Episode No OBEpisode recorded.
--- OUTSIDE RECORDS SUMMARY | 2025-03-14 11:48 | XMS_ITS | Clinical Summary ---
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 Name Role Phone Joaquim Pritchett MD Primary Care Provider [phone] Allergies Active Allergy Reactions Criticality Noted Date [...] follow-up care 11/26/2016 Mass of breast 02/24/2013 Encounters Date Type Department Care Team Description 02/17/2025 11:00 AM CDT Office Visit [facility] Surgery [address] [place] [address] [address] [place] [address] Rosy Olson MD H/O cosmetic plastic surgery (Primary Dx); Follow-up exam from Last 3 Months Surgical History Surgery Date Site/Laterality Comments BREAST SURGERY CATARACT EXTRACTION Bilateral Medical History Medical History Date Comments Breast cancer, left (HCC) Wrist fracture Family History Medical History Relation Name Comments Cancer Father Family history of cancer - (Added by TW Conv) Heart disease Father Family history of heart disease - (Added by TW Conv) Heart failure Father Heart disease Mother Family history of heart disease - (Added by TW Conv) Heart failure Mother Breast cancer Paternal Grandmother Relation Name Status Comments Father Mother Paternal Grandmother Social History Tobacco Use Types Packs/Day Years Used Date Smoking Tobacco: Former Comments Unknown Sex and Gender Information Value Date Recorded Sex Assigned at Not on file Legal Sex Female 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 Gender Identity Not on file Sexual Orientation Not on file Obstetrics History Para Term AB IAB SAB Ectopic Multiple Livin g Live Births 0 0 0 Last Filed Vital Signs Vital Sign Reading [...] 11/26/2016 2:12 PM CDT Plan of Treatment Health Maintenance Due Date Last Done Comments Colon Cancer Screening-Colonoscopy 1955 Depression Screening 1955 Fall Risk Assessment 1955 Hepatitis C Screening 1953 Hepatitis B Screening 1971 Zoster Vaccine (1 of 2) 2003 Well Visit 65+ 2018 Pneumococcal vaccine 65+ (2 of 2 - PCV) 05/20/2019 05/20/2018 DTaP/Tdap/Td Vaccine (2 - Td or Tdap) 11/28/2022 Osteoporosis Screening-Bone Density Scan 03/10/2025 03/10/2023 Influenza Vaccine (Season Ended) 2025 09/02/2019, 09/05/2015, 07/06/2014 Breast Cancer Screening-Mammogram 08/06/2025 024, 03/10/2023 Procedures Procedure Name Priority Date/Time Associated Diagnosis Comments DIAGNOSTIC MAMMOGRAM BILATERAL W ADOLFO W IMPLANTS Schedule Routine, Read Routine (OP Routine) 08/06/2024 10:47 AM VICE PRESIDENT QUALITY IMPROVEMENT Breast pain Personal history of breast cancer DEXA AXIAL SKELETON BONE DENSITY 1 OR MORE SITES Schedule Routine, Read Routine (OP Routine) 03/10/2023 1:25 PM CDT Screening for osteoporosis from Last 3 Months or Most Recently Relevant to Health Maintenance Results * Diagnostic Mammogram Bilateral W Adolfo W Implants (08/06/2024 10:47 AM VICE PRESIDENT QUALITY IMPROVEMENT) Anatomical Region Laterality Modality Breast Bilateral Mammography 08/06/2024 11:1 7 AM VICE PRESIDENT QUALITY IMPROVEMENT Impressions 08/06/2024 11:17 AM VICE PRESIDENT QUALITY IMPROVEMENT 1. No suspicious finding on either mammogram [...] De Anda M.D. Narrative 08/06/2024 11:17 AM VICE PRESIDENT QUALITY IMPROVEMENT EXAMINATION: BILATERAL DIGITAL DIAGNOSTIC MAMMOGRAM INCLUDING CAD [...] history of: Bone density follow up Screening. 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 MF: DIANE Report ID: [id number] Reading Location: [place] [address] Procedure Note Unruly Matias MD - 03/10/2023 EXAM DESCRIPTION: DEXA AXIAL SKELETON BONE DENSITY 1 OR MORE SITES REASON FOR STUDY: 67 y/o year old F with given history of: Bonedensity follow up Screening. 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 MF: DIANE Report ID: [id number] Reading Location: [place] [address] Indu Whitaker MD IM DXA PROCEDURES Final Result from Last 3 Months or Most Recently Relevant to Health Maintenance Insurance [employer] MEDICARE [facility] MED[facility] Address: [address] [place] [address] [employer] MEDICARE Care Teams Pararescue Manager Relationship Specialty Start Date End Date Joaquim Pritchett MD [address] [place] [address] PCP - General Family Medicine 05/05/24
--- OUTSIDE RECORDS SUMMARY | 2025-03-14 11:48 | XMS_ITS | Clinical Summary ---
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
== END 2025-03-14 11:16 | disposition home or self-care (01) ==
PROVIDERS: PCP Family Medicine; Visit Provider Nurse Practitioner Family
DX: M81.0 Age-related osteoporosis without current pathological fracture (principal); M47.896 Other spondylosis, lumbar region; M47.897 Other spondylosis, lumbosacral region
CPT/HCPCS: 72100; 73521